=== PATIENT | female | born 1970 | race Caucasian/White ===

== ENCOUNTER 2020-04-09 22:28 | Emergency (ER) | payer BC, OTHER ==
[~2020-04-09] VITALS: Ht 167.6 cm; Wt 61.2 kg
--- NOTE | 2020-04-09 22:49 | NUR ---
First contact, patient AO x 4, came i here for lip swelling, redness and slight swelling around the eyes and neck area. Denies SOB, O2 sat being monitored, 98% on RA. Per patient, she did not eat anything new, but she did take Pepcid AC within the last 24 hours due to heartburn. Denies any PMH, allergic to Acetaminophen. No other issues and complaints. Pending MSE.
--- NOTE | 2020-04-09 23:20 | NUR ---
Dr Talbot is at bedside for MSE.
[2020-04-09] MEDS ORDERED: methylPREDNISolone SOD SUCC 125 MG/2 ML VIAL ONE (23:43)
[2020-04-09] MEDS ORDERED: FAMOTIDINE. 20 MG/2 ML VIAL IV ONE ×2 (23:44→23:45)
[2020-04-09] MEDS ORDERED: methylPREDNISolone SOD SUCC 125 MG/2 ML VIAL IV ONE (23:45)
[2020-04-09 23:52] LABS: BASOPHILS % (AUTO) 0.4 % (0.0-2.0); EOSINOPHILS # (AUTO) 0.1 K/uL (0.0-0.7); EOSINOPHILS % (AUTO) 2.4 % (0.0-7.0); HEMATOCRIT 36.5 % (31.2-41.9); HEMOGLOBIN 12.6 g/dL (10.9-14.3); LYMPHOCYTES # (AUTO) 1.3 K/uL (20.0-40.0); LYMPHOCYTES % (AUTO) 31.8 % (20.5-51.5); MEAN CORPUSCULAR HGB CONC 35 g/dL (32.3-35.6); MEAN CORPUSCULAR VOLUME 92.8 fL (75.5-95.3); MONOCYTES # (AUTO) 0.4 K/uL (2.0-10.0); MONOCYTES % (AUTO) 10.9 % (0.0-11.0); NEUTROPHILS # (AUTO) 2.2 K/uL (1.8-8.9); NEUTROPHILS % (AUTO) 54.5 % (38.5-71.5); PLATELET COUNT (AUTO) 194 K/uL (179-408); RED BLOOD CELL COUNT(AUTO) 3.93 MIL/uL (3.63-4.92); WHITE BLOOD COUNT (AUTO) 4.1 K/uL (3.8-11.8)
--- NOTE | 2020-04-09 23:53 | NUR ---
All orders carried out, patient tolerated lab draw and IV medications provided. Stilll saturating at 100% on RA. No signs of acute distress.
[2020-04-09 23:54] LABS: CREATININE 0.9 mg/dL (0.6-1.3); POTASSIUM 3.8 mmol/L (3.5-5.1)
[2020-04-10] LABS: BILIRUBIN,DIRECT 0.1 mg/dL (0.0-0.2); BILIRUBIN,TOTAL 0.4 mg/dL (0.2-1.0); TOTAL PROTEIN, SERUM 7.5 g/dL (6.4-8.2)
--- NOTE | 2020-04-10 00:50 | NUR ---
Pt resting in bed, no signs of acute distress. Still noted with some swelling on the lower lip. Diffused redness still noted on area around bilateral eyes and upper cheeks, but patient verbalizes that she feels like it is getting better. Will continue to monitor.
[2020-04-10 01:24] VITALS: BP 115/75
--- NOTE | 2020-04-10 01:24 | NUR ---
Pt has been cleared for DC. Swelling and redness has greatly improved. Written and verbal after care instructions given. Patient verbalizes understanding of instructions. Stressed follow up or return to ER for worsening s/s. Patient discharged to home in stable condition, ambulated out of ED in steady gait.
== END 2020-04-10 01:25 | disposition home or self-care (01) ==
LOC: ER 22:30
DX: T78.40XA Allergy, unspecified, initial encounter (principal); X58.XXXA Exposure to other specified factors, initial encounter; Z88.6 Allergy status to analgesic agent
CPT/HCPCS: 36415; 80048; 80076; 84484; 84702; 85025; 96374; 96375; 99284; J2930; J3490; 70030-TC; A4663